=== PATIENT | male | born 1945 | race Caucasian/White ===

== ENCOUNTER → 2018-10-23 | Outpatient (CLI) | payer MEDICARE, OTHER ==
[~2018-10-23] MED LIST: ASPIRIN EC81 M1; ATORVASTATIN CA40 MG; FISH OIL 1,2001 EAC4; GEMFIBROZIL 60600 MG; GLUCOPHAGE500 MG; GLUCOSAMINE1000 MG; HUMALOG100 UNIT/1; LANTUS; LIPITOR40 MG; LISINOPRIL-HCT1 EAC1; MULTIVITAMINS1 EAC7
== END ==
LOC: M.MRI 15:56
DX: M51.37 Other intervertebral disc degeneration, lumbosacral region (principal); M25.78 Osteophyte, vertebrae; M48.07 Spinal stenosis, lumbosacral region; M12.88 Other specific arthropathies, not elsewhere classified, other specified site; M51.26 Other intervertebral disc displacement, lumbar region; M25.551 Pain in right hip